=== PATIENT | male | born 1985 | race African-American/Black ===

== ENCOUNTER 2024-03-12 23:22 | Emergency (ER) | payer SELFPAY ==
[~2024-03-12] VITALS: Ht 172.7 cm; Wt 86.4 kg
[2024-03-12 23:36] VITALS: TEMP 98.2
[2024-03-13] MEDS ORDERED: Ondansetron 4 MG/2 ML VIAL IV ONE (00:30)
[2024-03-13] MEDS ORDERED: NS 1,000 ML IV ONE (00:30)
[2024-03-13 00:39] LABS: BASO % 0.3 % (0.0-2.0); EOS % 0.4 % (0.0-4.0); GRAN # 8.7 K/mm3 (1.4-6.5); HEMATOCRIT 46.1 % (42.0-52.0); HEMOGLOBIN 16.5 g/dl (13.5-18.0); LYMPH # 1.5 K/mm3 (1.2-3.4); LYMPH % 14.3 % (20.0-51.0); MEAN CELL VOLUME 93 fl (80.0-100.0); MEAN CORPUSCULAR HEMOGLOBIN 33 pg (27-31); MEAN CORPUSCULAR HGB CONC 36 g/dl (33.0-37.0); MEAN PLATELET VOLUME 8.8 fl (7.4-10.4); MONO # 0.4 K/mm3 (0.1-0.6); MONO % 3.7 % (1.7-9.3); PLATELET COUNT 284 K/mm3 (130-400); RED BLOOD COUNT 4.98 M/mm3 (4.20-5.60); REDCELL DISTRIBUTION WIDTH-CV 12.2 % (11.5-14.5)
[2024-03-13] MEDS ORDERED: Iohexol 300 - 100 ML VIAL IV ONE (00:44)
[2024-03-13] MEDS ORDERED: NS 50 ML IV SCH (00:44)
[2024-03-13] MEDS ORDERED: Ketorolac 15 MG/ML VIAL IV ONE (00:45)
[2024-03-13 00:57] LABS: ALANINE AMINOTRANSFERASE 28 U/L (0-55); ALBUMIN 4.3 g/dL (3.5-5.0); ALKALINE PHOSPHATASE 78 U/L (40-150); ANION GAP 19 mmol/L (7-16); AST,SGOT 22 U/L (5-34); BLOOD UREA NITROGEN 21 mg/dL (9-21); CALCIUM 10.2 mg/dL (8.4-10.2); CHLORIDE 106 mEq/L (98-107); GLUCOSE 149 mg/dL (70-99); LIPASE 31 U/L (8-78); SODIUM 144 mEq/L (136-145); TOTAL PROTEIN 7.3 g/dl (6.2-8.1)
[2024-03-13 01:03] LABS: TROPONIN-I < 0.010 ng/mL (0.00-0.033)
[2024-03-13 01:05] LABS: POTASSIUM 2.8 mEq/L (3.5-4.5)
[2024-03-13] MEDS ORDERED: NS & 20 mEq KCl 1,000 ML IV SCH (01:15)
[2024-03-13] MEDS ORDERED: Magnesium Sulfate 4% 50 ML IV ONE (01:30)
[2024-03-13 01:46] LABS: COLLECTION METHOD CLEAN CATCH
[2024-03-13 01:52] LABS: URINE APPEARANCE CLEAR (CLEAR/HAZY); URINE BLOOD NEGATIVE (NEGATIVE); URINE COLOR YELLOW (YELLOW); URINE GLUCOSE TRACE (NEGATIVE); URINE KETONE 1+ (NEGATIVE); URINE NITRATE NEGATIVE (NEGATIVE); URINE PROTEIN(semi-quant) NEGATIVE (NEGATIVE); URINE UROBILINOGEN 0.2 E.U/dL (0.2-1.0)
[2024-03-13 01:56] LABS: SALICYLATE < 5.0 mg/dL (15.0-30.0)
[2024-03-13] MEDS ORDERED: PRILOSEC 20MG20 MG PO (02:34)
[2024-03-13] MEDS ORDERED: ZOFRAN ODT4 MG PO (02:34)
[2024-03-13 03:11] VITALS: BP 133/83; PULSE 64
== END 2024-03-13 03:14 | disposition home or self-care (01) ==
LOC: COL.ER 23:22
PROVIDERS: Emergency Medicine
DX: K29.70 Gastritis, unspecified, without bleeding (principal); K80.80 Other cholelithiasis without obstruction; E87.6 Hypokalemia
CPT/HCPCS: J1885; J2405; J3475; J3480; J7030; Q9967